=== PATIENT | female | born 1935 | race Caucasian/White ===

== ENCOUNTER 2016-08-11 18:16 | Inpatient (IN) | payer OTHER, MEDICAID ==
[~2016-08-11] VITALS: Ht 165.1 cm; Wt 71.7 kg
[2016-08-11] MEDS ORDERED: MORPHINE SULFATE 4 MG/ML CPJ (NOT FOR IM USE) IV STA (18:54)
[2016-08-11] MEDS ORDERED: ONDANSETRON HCL 4MG/2ML VIAL IV STA (18:54)
[2016-08-11] MEDS ORDERED: SODIUM CHLORIDE 0.9% 1000ML BAG (SEPSIS BOLUS) IV ONE (19:00)
[2016-08-11] MEDS ORDERED: CLONIDINE 0.2MG TABLET PO ONE (19:00)
[2016-08-11 19:17] LABS: CLARITY URINE CLEAR (CLEAR); COLOR URINE YELLOW (YELLOW); KETONES URINE NEGATIVE (NEGATIVE); LEUKOCYTE ESTERASE URINE TRACE (NEGATIVE); NITRITE URINE NEGATIVE (NEGATIVE); OCCULT BLOOD URINE 3+ (NEGATIVE); PH URINE 6.5 (4.5-8.0); PROTEIN URINE NEGATIVE (NEGATIVE); SPECIFIC GRAVITY URINE 1.013 (1.005-1.030); UROBILINOGEN URINE 0.2 E.U./dL (0.2-1.0)
[2016-08-11 19:25] LABS: HEMATOCRIT. 39.1 % (36.0-48.0); HEMOGLOBIN. 13.2 g/dL (12.0-16.0); MEAN CORPUSCULAR HEMOGLOBIN 31.5 pg (28.0-32.0); MEAN CORPUSCULAR VOLUME 92.9 fL (81.0-99.0); MEAN PLATELET VOLUME 7.4 fl (7.4-10.4); PLATELET 155 x1000/uL (130-400); RED BLOOD CELL COUNT 4.21 mill/uL (4.2-5.4); RED CELL DISTRIBUTION WIDTH 13.9 % (11.6-14.6)
[2016-08-11 19:29] LABS: CHLORIDE 101 mEq/L (98-107)
[2016-08-11 19:34] LABS: CARBON DIOXIDE 25 mEq/L (21-32)
[2016-08-11 19:40] LABS: TROPONIN I < 0.02 ng/mL (0.00-0.04)
[2016-08-11] MEDS ORDERED: ACETAMINOPHEN 500MG TABLET ONE (19:44)
[2016-08-11] MEDS ORDERED: LEVOFLOXACIN 750MG PREMIX 150 ML IV ONE (19:45)
[2016-08-11 20:07] LABS: PLATELET ESTIMATE NORMAL
[2016-08-11] MEDS ORDERED: ACETAMINOPHEN 325MG TABLET PO ONE (20:15)
[2016-08-11] MEDS ORDERED: MORPHINE SULFATE 4 MG/ML CPJ (NOT FOR IM USE) IV ONE (23:15)
[2016-08-12] MEDS ORDERED: HYDROCODONE/ACETAMINOPHEN 5/325MG TABLET PO PRN (06:15)
[2016-08-12] MEDS ORDERED: ACETAMINOPHEN 325MG TABLET PO PRN (06:15)
[2016-08-12] MEDS: SODIUM CHLORIDE 0.9% 1,000 ML IV SCH ×2 (07:10→19:50)
[2016-08-12 09:09] LABS: BASOPHILS % 0.2 % (0.0-2.0); EOSINOPHILS % 0.3 % (0.0-5.0); HEMATOCRIT. 33.8 % (36.0-48.0); HEMOGLOBIN. 11.5 g/dL (12.0-16.0); MEAN CORPUSCULAR HEMOGLOBIN 31.8 pg (28.0-32.0); MEAN CORPUSCULAR VOLUME 93.4 fL (81.0-99.0); MEAN PLATELET VOLUME 7.8 fl (7.4-10.4); MONOCYTES % 6.5 % (2.0-8.0); PLATELET 142 x1000/uL (130-400); RED BLOOD CELL COUNT 3.62 mill/uL (4.2-5.4); RED CELL DISTRIBUTION WIDTH 14.1 % (11.6-14.6)
[2016-08-12 09:30] LABS: CARBON DIOXIDE 27 mEq/L (21-32); CHLORIDE 108 mEq/L (98-107)
[2016-08-12] MEDS: ENOXAPARIN 40MG/0.4ML SYR SUBCUT SCH (11:56)
[2016-08-13 06:40] LABS: BASOPHILS % 0.3 % (0.0-2.0); EOSINOPHILS % 0.4 % (0.0-5.0); HEMATOCRIT. 32.5 % (36.0-48.0); HEMOGLOBIN. 11.1 g/dL (12.0-16.0); LYMPHOCYTES % 15.2 % (20.0-50.0); MEAN CORPUSCULAR HEMOGLOBIN 32.2 pg (28.0-32.0); MEAN PLATELET VOLUME 8.1 fl (7.4-10.4); MONOCYTES % 10.2 % (2.0-8.0); NEUTROPHILS % 73.9 % (40.0-76.0); PLATELET 139 x1000/uL (130-400); RED BLOOD CELL COUNT 3.46 mill/uL (4.2-5.4); RED CELL DISTRIBUTION WIDTH 13.8 % (11.6-14.6)
[2016-08-13 07:52] LABS: CHLORIDE 109 mEq/L (98-107)
[2016-08-13 08:00] LABS: CARBON DIOXIDE 27 mEq/L (21-32)
[2016-08-13] MEDS: SODIUM CHLORIDE 0.9% 1,000 ML IV SCH (08:32)
[2016-08-13] MEDS: ENOXAPARIN 40MG/0.4ML SYR SUBCUT SCH (08:32)
[2016-08-13 10:17] VITALS: BP 139/69
[2016-08-13] MEDS ORDERED: LEVOFLOXACIN 750MG PREMIX 150 ML IV SCH (11:00)
== END 2016-08-13 11:30 | disposition home or self-care (01) | DRG 872 ==
LOC: ER 19:14 → 8WST 21:19 → ENRESERV 08-12 02:03
PROVIDERS: ADMIT Internal Medicine; ATTEND Internal Medicine
DX: A41.9 Sepsis, unspecified organism (principal); N39.0 Urinary tract infection, site not specified; I10 Essential (primary) hypertension; J20.9 Acute bronchitis, unspecified; R51 Headache; Z79.899 Other long term (current) drug therapy
CPT/HCPCS: 36415; 70450; 71010; 80048; 80053; 81001; 83605; 84484; 85025; 87040; 87077; 87086; 87186; 93005; 93970; 96374; 96375; 96376; 99291; J1650; J1956; J2270; J2405; J7030